=== PATIENT | male | born 2000 | race Two or more races ===

== ENCOUNTER 2022-09-12 18:20 | Emergency (ER) | payer OTHER ==
[~2022-09-12] VITALS: Ht 170.2 cm; Wt 68.4 kg
[2022-09-12 18:21] VITALS: BP 130/72
[2022-09-12 22:07] LABS: HEMATOCRIT 44.9 % (42.0-52.0); HEMOGLOBIN 15.3 g/dl (13.5-17.5); MEAN CORPUSCULAR HEMOGLOBIN 30.9 pg (27.0-33.0); MEAN CORPUSCULAR HGB CONC 34.1 g/dl (32.0-36.5); MEAN CORPUSCULAR VOLUME 90.7 fl (80.0-96.0); PLATELET COUNT, AUTOMATED 388 10^3/uL (150-450); RED BLOOD COUNT 4.95 10^6/uL (4.30-6.10); WHITE BLOOD COUNT 11.8 10^3/uL (4.0-10.0)
[2022-09-12 22:31] LABS: BLOOD UREA NITROGEN 18 MG/DL (9-23); CARBON DIOXIDE LEVEL 27 MMOL/L (20-31); CHLORIDE LEVEL 105 MMOL/L (98-107); GLOMERULAR FILTRATION RATE > 60.0 (>60); GLUCOSE, FASTING 89 MG/DL (60-100); MAGNESIUM LEVEL 2.1 MG/DL (1.8-2.4); POTASSIUM SERUM 4.2 MMOL/L (3.5-5.1); SODIUM LEVEL 139 MMOL/L (136-145)
[2022-09-12 22:33] LABS: FREE T4 1.31 NG/DL (0.89-1.76); THYROID STIMULATING HORMONE 1.905 uIU/ML (0.55-4.78)
[2022-09-12 22:35] LABS: CPK CREATINE PHOSPHOKINASE 241 U/L (46-171)
[2022-09-12] MEDS ORDERED: HOLTER MONITOR XX (22:56)
== END 2022-09-12 23:02 | disposition home or self-care (01) ==
LOC: M ED 18:20
DX: R00.2 Palpitations (principal); K21.9 Gastro-esophageal reflux disease without esophagitis

== ENCOUNTER → 2022-09-21 | Outpatient (CLI) | payer OTHER ==
[~2022-09-21] MED LIST: HOLTER MONITOR XX
== END ==
LOC: M EKG 13:01
PROVIDERS: ATTEND Physician Assistant
DX: R00.2 Palpitations (principal)